=== PATIENT | female | born 1965 | race Caucasian/White ===

== ENCOUNTER 2017-09-08 12:57 | Inpatient (IN) | payer BC ==
[2017-09-08] VITALS (15 sets, daily range): BP systolic 128–177; BP diastolic 75–99
[~2017-09-08] VITALS: Ht 157.5 cm; Wt 106.1 kg
[~2017-09-08 12:57] MED LIST: ASPIR-TRIN325 M1 PO; ASPIRIN EC325 MG PO; Afrin,Genasal Decon, NS; COREG6.25 M1 PO; ENDOCET 5-3251 EACH PO; FEOSOL325 MG PO; INVOKANA100 MG PO; LOPRESSOR25 MG PO; METFORMIN HCL500 M4 PO; MEVACOR40 MG PO; NORVASC10 MG PO; OMEPRAZOLE40 M1 PO; ONGLYZA5 MG PO; OXYCONTIN10 MG PO; PERCOCET 10/1 TABLET PO; Prilosec PO; SENNA PLUS TAB1 EACH PO; SENOKOT S,PE1 TABLET PO; TOPAMAX100 MG PO; TRILIPIX135 MG PO; Vicodin,Lortab 5/500 PO
[2017-09-08 13:17] LABS: BASOPHIL (%) 0.7 % (0-1); BASOPHIL COUNT 0.1 K/uL (0-0.1); EOSINOPHIL (%) 2.3 % (0-5); EOSINOPHIL COUNT 0.2 K/uL (0-0.3); HEMATOCRIT 40.7 % (36.0-46.0); HEMOGLOBIN 13.1 G/DL (11.9-15.5); IMMATURE GRANULOCYTE (%) 1.9 % (0.0-0.7); LYMPHOCYTE (%) 18.4 % (15-42); LYMPHOCYTE COUNT 1.3 K/uL (1.0-2.8); MCH 27.5 PG (29.0-34.0); MCHC 32.2 G/DL (30.0-36.0); MCV 85.3 FL (83-99); MONOCYTE (%) 9.4 % (3-12); MONOCYTE COUNT 0.7 K/uL (0-0.8); NEUTROPHIL (%) 67.3 % (45-76); NEUTROPHIL COUNT 4.9 K/uL (1.8-6.4); PLATELET COUNT 220 K/uL (156-360); RBC DIS.WIDTH-CV 14.3 % (11.8-14.6); RBC DIS.WIDTH-SD 44.6 % (39-53); RED BLOOD COUNT 4.77 M/uL (3.80-5.20); WHITE BLOOD COUNT 7.3 K/uL (4.1-10.2)
[2017-09-08 13:24] LABS: INTER. NORMALIZED RATIO 1.1
[2017-09-08 13:27] LABS: PTT 27.1 SEC (25-37)
[2017-09-08 13:29] LABS: ALBUMIN 4.1 g/dL (3.2-4.8); CHLORIDE 105 mEq/L (99-109); POTASSIUM 3.9 mEq/L (3.7-5.4); SODIUM 140 mEq/L (136-147)
[2017-09-08 13:31] LABS: GLUCOSE 150 mg/dL (70-99)
[2017-09-08 13:33] LABS: TOTAL BILIRUBIN 0.3 mg/dL (0.0-1.0)
[2017-09-08 13:35] LABS: ALKALINE PHOSPHATASE 76 IU/L (3-129); CREATININE 0.7 mg/dL (0.6-1.3); GFR ESTIMATE (CALCULATED) > 59 mL/min/
[2017-09-08 13:36] LABS: AST (GOT) 19 IU/L (2-34); DIRECT BILIRUBIN 0.1 mg/dL (0.0-0.3); UREA NITROGEN (BUN) 14 mg/dL (9-23)
[2017-09-08 13:38] LABS: ALT (GPT) 25 IU/L (3-49)
[2017-09-08 13:39] LABS: TROP-I INTERPRETATION NEGATIVE; TROPONIN-I < 0.01 ng/mL (0.0-0.30)
[2017-09-08 13:49] LABS: APPEARANCE CLEAR ((CLEAR)); BILIRUBIN NEGATIVE; BLOOD NEGATIVE; COLOR STRAW ((YELLOW)); GLUCOSE (STRIP) >=500; KETONES NEGATIVE; LEUKOCYTES TRACE; NITRITE NEGATIVE; PROTEIN (STRIP) NEGATIVE; SPECIFIC GRAVITY 1.014 (1.000-1.030); UROBILINOGEN 0.2 MG/DL (0.2-1.0)
[2017-09-08 13:55] LABS: BACTERIA NONE SEEN /HPF; EPITHELIAL CELLS RARE /HPF; MUCUS TRACE /LPF; RED BLOOD CELLS 0-5 /HPF (0-5); UCUL ADDED? NO; WHITE BLOOD CELLS 0-5 /HPF (0-5)
[2017-09-09] VITALS (20 sets, daily range): BP systolic 128–168; BP diastolic 71–102
[2017-09-09 05:27] LABS: BASOPHIL (%) 0.8 % (0-1); BASOPHIL COUNT 0.1 K/uL (0-0.1); EOSINOPHIL (%) 1.5 % (0-5); EOSINOPHIL COUNT 0.1 K/uL (0-0.3); HEMATOCRIT 38.1 % (36.0-46.0); HEMOGLOBIN 12.3 G/DL (11.9-15.5); LYMPHOCYTE (%) 21.9 % (15-42); LYMPHOCYTE COUNT 1.4 K/uL (1.0-2.8); MCH 27.3 PG (29.0-34.0); MCHC 32.3 G/DL (30.0-36.0); MCV 84.5 FL (83-99); MONOCYTE (%) 9.9 % (3-12); MONOCYTE COUNT 0.6 K/uL (0-0.8); NEUTROPHIL (%) 63.9 % (45-76); NEUTROPHIL COUNT 4.2 K/uL (1.8-6.4); PLATELET COUNT 251 K/uL (156-360); RBC DIS.WIDTH-CV 14.4 % (11.8-14.6); RED BLOOD COUNT 4.51 M/uL (3.80-5.20); WHITE BLOOD COUNT 6.5 K/uL (4.1-10.2)
[2017-09-09 05:59] LABS: CHLORIDE 103 MEQ/L (99-109); CREATININE 0.5 MG/DL (0.6-1.3); GFR ESTIMATE (CALCULATED) > 59 mL/min/; GLUCOSE 129 mg/dL (70-99); HDL CHOLESTEROL 25 MG/DL (Desirable>=50); LDL CHOLESTEROL 82 mg/dL (Desirable<100); MAGNESIUM 1.7 mg/dl (1.3-2.7); NON-HDL CHOLESTEROL 144 mg/dL (Desirable<160); PHOSPHORUS 3.9 mg/dL (2.5-4.9); POTASSIUM 3.6 MEQ/L (3.7-5.4); SODIUM 141 MEQ/L (136-147); TOTAL CHOLESTEROL 169 mg/dL (Desirable<200); TRIGLYCERIDES 310 MG/DL (Normal: <150); UREA NITROGEN (BUN) 12 mg/dL (9-23)
[2017-09-09 12:08] LABS: HEMOGLOBIN A1c (GLYCOHEMOGLOB) 7.2 % (Below 5.7)
[2017-09-09] MEDS ORDERED: CARVEDILOL6.25 MG PO (15:24)
[2017-09-09] MEDS ORDERED: JANUVIA100 MG PO (15:24)
[2017-09-09] MEDS ORDERED: LISINOPRIL20 MG PO (15:24)
[2017-09-09] MEDS ORDERED: OXYCODONE HCL10 MG PO (15:25)
[2017-09-10] VITALS (15 sets, daily range): BP systolic 114–174; BP diastolic 59–93
[2017-09-10 06:21] LABS: BASOPHIL (%) 0.5 % (0-1); EOSINOPHIL (%) 1.4 % (0-5); EOSINOPHIL COUNT 0.1 K/uL (0-0.3); HEMATOCRIT 40.9 % (36.0-46.0); IMMATURE GRANULOCYTE (%) 1.6 % (0.0-0.7); LYMPHOCYTE (%) 16.5 % (15-42); MCHC 31.8 G/DL (30.0-36.0); MCV 84.9 FL (83-99); MONOCYTE (%) 7.6 % (3-12); MONOCYTE COUNT 0.5 K/uL (0-0.8); NEUTROPHIL (%) 72.4 % (45-76); NEUTROPHIL COUNT 4.6 K/uL (1.8-6.4); PLATELET COUNT 247 K/uL (156-360); RBC DIS.WIDTH-CV 14.1 % (11.8-14.6); RBC DIS.WIDTH-SD 43.8 % (39-53); RED BLOOD COUNT 4.82 M/uL (3.80-5.20); WHITE BLOOD COUNT 6.3 K/uL (4.1-10.2)
[2017-09-10 06:24] LABS: INTER. NORMALIZED RATIO 1.1
[2017-09-10 06:27] LABS: PTT 27.2 SEC (25-37)
[2017-09-10 06:42] LABS: CHLORIDE 99 MEQ/L (99-109); CREATININE 0.6 MG/DL (0.6-1.3); GFR ESTIMATE (CALCULATED) > 59 mL/min/; GLUCOSE 140 mg/dL (70-99); MAGNESIUM 1.8 mg/dl (1.3-2.7); POTASSIUM 3.8 MEQ/L (3.7-5.4); SODIUM 139 MEQ/L (136-147); UREA NITROGEN (BUN) 16 mg/dL (9-23)
[2017-09-11 03:54] VITALS: BP 131/89
[2017-09-11 07:13] VITALS: BP 118/63
[2017-09-11 11:30] VITALS: BP 134/75
[2017-09-11] MEDS ORDERED: ATORVASTATIN CA40 MG PO (12:01)
== END 2017-09-11 13:05 | disposition home or self-care (01) | DRG 65 ==
LOC: EME 12:57 → 4WEST 14:35 → EDOF 14:35 → CANRESERV 14:49 → ENRESERV 14:49 → 4WEST 16:02 → ENRESERV 09-10 12:57 → 4WEST 09-10 14:19 → 5SOUTH 09-10 14:57
PROVIDERS: Emergency Medicine; Hospitalist; Specialist
DX: I61.8 Other nontraumatic intracerebral hemorrhage (principal); R47.01 Aphasia; H53.40 Unspecified visual field defects; R27.8 Other lack of coordination; I10 Essential (primary) hypertension; E11.9 Type 2 diabetes mellitus without complications; E78.5 Hyperlipidemia, unspecified; K21.9 Gastro-esophageal reflux disease without esophagitis; M17.11 Unilateral primary osteoarthritis, right knee; E66.9 Obesity, unspecified; Z68.41 Body mass index [BMI] 40.0-44.9, adult; Z90.710 Acquired absence of both cervix and uterus; Z96.653 Presence of artificial knee joint, bilateral; Z79.84 Long term (current) use of oral hypoglycemic drugs; Z88.2 Allergy status to sulfonamides; Z88.5 Allergy status to narcotic agent
CPT/HCPCS: 70450; 70470; 70496; 70498; 80048; 80061; 80076; 81003; 82948; 83036; 83605; 83735; 83880; 84100; 84484; 85025; 85610; 85730; 87641; 92523 GN; 93005; 93306; 94760; 94799; 99281; 99285; J0360; J2405; J2997; J3475